=== PATIENT | female | born 2000 | race Caucasian/White ===

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

== ENCOUNTER → 2020-10-31 | Outpatient (CLI) | payer SELFPAY | LOC: M LABSMTC 13:40 | PROVIDERS: ATTEND Pediatrics | DX: Z20.828 Contact with and (suspected) exposure to other viral communicable diseases (principal) ==

== ENCOUNTER → 2022-03-24 | Outpatient (CLI) | payer OTHER | LOC: M CLY 10:56 | PROVIDERS: ATTEND Nurse Practitioner Family | DX: M54.2 Cervicalgia (principal) ==